=== PATIENT | female | born 1990 | race Two or more races ===

== ENCOUNTER 2016-11-12 14:53 | Emergency (ER) | payer SELFPAY ==
[~2016-11-12] VITALS: Ht 160 cm; Wt 74.8 kg
--- NOTE | 2016-11-12 15:19 | Emergency Room Report ---
History of Present Illness General Chief Complaint: Female Urogenital Problems Source: Patient Present Illness HPI 25-year-old female presents to emergency department complaining of itchy rash on the anterior chest and feet bilaterally x1 month. Patient also reports vaginal bleeding x3 days when she just had her period a week and half ago. Patient denies she does report unprotected intercourse. Patient states that she has not been on control for over 3 months but she is out. Patient also reports that she has always had irregular periods. Patient denies abdominal pain, cramping, dyspareunia vaginal discharge other than bleeding, dysuria, frequency, hematuria. Patient denies nausea, vomiting, fevers, chills. Pt also states that she has had an ingrown hair in the groin area x 1 week, denies swollen lymph nodes, denies hx of STI. reports mild erythema. Denies CP, Palpitations, LOC, AMS, dizziness, Changes in Vision, Sensation, paresthesias, or a sudden severe headache. Allergies: Coded Allergies: No Known Allergies (Unverified , 11/12/16) Patient History Past Medical History: see triage record Past Surgical History: none Pertinent Family History: none Last Menstrual Period: 10/24/16 Now: No Immunizations: UTD Reviewed Nursing Documentation: PMH: Agreed, PSxH: Agreed Nursing Documentation-PMH Past Medical History: No Stated History Review of Systems All Other Systems: negative except mentioned in HPI Physical Exam Vital Signs Date Time Temp Pulse Resp B/P Pulse Ox O2 Delivery O2 Flow Rate FiO2 11/12/16 15:12 98.1 89 16 119/75 99 Room Air Sp02 EP Interpretation: reviewed, normal General Appearance: no apparent distress, alert, GCS 15, non-toxic Head: normocephalic, atraumatic Eyes: bilateral eye PERRL, bilateral eye normal inspection ENT: hearing grossly normal, normal pharynx, no angioedema, normal voice Neck: full range of motion, supple/symm/no masses Respiratory: chest non-tender, lungs clear, normal breath sounds, speaking full sentences Cardiovascular #1: regular rate, rhythm, no edema Gastrointestinal: normal bowel sounds, non tender, soft, no guarding, no rebound Rectal: deferred Genitourinary: normal inspection, no CVA tenderness, cervix normal, os closed, other - no CMT, there is dark red blood in the vaginal vault, no evidence of vaginal wall laceration. there is a small pustule noted on the inner left thigh with mild surrounding erythema, no increased temperature to palpation, no palpable inguinal LAD. Musculoskeletal: back normal, gait/station normal, normal range of motion, non- tender, no calf tenderness Neurologic: alert, oriented x3, responsive, motor strength/tone normal, sensory intact, speech normal Psychiatric: judgement/insight normal, memory normal, mood/affect normal, no suicidal/homicidal ideation Skin: normal color, no rash, warm/dry, well hydrated, rash - macerated rash under each breast bilaterally, in addition to the medial aspects of the feet and webbed spaces bilaterally. no increased temperature to palpation, no crusting noted. Lymphatic: no adenopathy Medical Decision Making PA Attestation Dr. goode is my supervising Physician whom patient management has been discussed with. Diagnostic Impression: Primary Impression: Irregular menstrual cycle Additional Impressions: Folliculitis Rash ER Course Pt. presents to the ED c/o a regular menses, vaginal bleeding x2 days, being out of control medication x 4 months, and rash. Ddx considered but are not limited to [ ] Vital signs: are WNL, pt. is afebrile H&PE are most consistent with [ ] ORDERS: none required at this time, the diagnosis is clinical ED INTERVENTIONS: None required at this time. DISCHARGE: At this time pt. is stable for d/c to home. Will provide printed patient care instructions, and any necessary prescriptions. Care plan and follow up instructions have been discussed with the patient prior to discharge. Last Vital Signs Date Time Temp Pulse Resp B/P Pulse Ox O2 Delivery O2 Flow Rate FiO2 11/12/16 15:12 98.1 89 16 119/75 99 Room Air Disposition: HOME, SELF-CARE Condition: Stable Scripts Clotrimazole* (LOTRIMIN*) 15 Gm Cream..g. 1 APPLIC TOPIC TWICE A DAY, #15 GM Prov: Elisabeth Kerr 11/12/16 Noreth A-Et Estra/Fe Fumarate (MICROGESTIN FE 1-20 TABLET) 1 Each Tablet 1 EACH PO DAILY, #1 PACK 3 Refills Prov: Elisabeth Kerr 11/12/16 Doxycycline Hyclate* (VIBRAMYCIN*) 100 Mg Capsule 100 MG ORAL EVERY 12 HOURS for 7 Days, #14 CAP 0 Refills Prov: Elisabeth Kerr 11/12/16 Patient Instructions: Folliculitis, Menstruation, Rash Additional Instructions: Take medications as directed. Follow up with OBGYN in 3-5 days Return sooner to ED if new symptoms occur, or current symptoms become worse. Elisabeth Kerr Nov 12, 2016 15:19
[2016-11-12 15:20] VITALS: BP 122/62
[2016-11-12 15:47] LABS: APPEARANCE,URINE SLIGHTLY CLOUDY; KETONES,URINE 1+ (NEGATIVE); LEUKOCYTE ESTERASE ,URINE 1+ (NEGATIVE); NITRITE,URINE NEGATIVE (NEGATIVE); PH,URINE 5 (4.5-8.0); PROTEIN,URINE 2+ (NEGATIVE); UROBILINOGEN,URINE NORMAL MG/DL (0.0-1.0)
[2016-11-12 15:58] LABS: ICTOTEST NEGATIVE
[2016-11-12] MEDS ORDERED: VIBRAMYCIN100 MG ORAL (16:19)
[2016-11-12] MEDS ORDERED: CLOTRIMAZOLE15 GM TOPIC (16:19)
[2016-11-12] MEDS ORDERED: MICROGESTIN FE1 EAC1 PO (16:19)
[2016-11-12 16:21] LABS: RBC,URINE TNTC /HPF (0 - 2)
[2016-11-12 16:22] LABS: BACTERIA,URINE MANY /HPF; SQUAMOUS EPITHELIAL CELL,UR FEW /LPF (NONE/OCC)
[2016-11-12 16:27] VITALS: BP 118/60
== END 2016-11-12 16:27 | disposition home or self-care (01) ==
LOC: EMR 16:15
DX: N92.5 Other specified irregular menstruation (principal); R21 Rash and other nonspecific skin eruption; L73.9 Follicular disorder, unspecified
CPT/HCPCS: 81003; 81025; 87086; 99282

== ENCOUNTER 2016-12-14 10:27 | Emergency (ER) | payer SELFPAY ==
[~2016-12-14] VITALS: Ht 160 cm; Wt 77.1 kg
[~2016-12-14 10:27] MED LIST: CLOTRIMAZOLE15 GM TOPIC; MICROGESTIN FE1 EAC1 PO; VIBRAMYCIN100 MG ORAL
[2016-12-14 10:40] VITALS: BP 129/81
[2016-12-14] MEDS ORDERED: KEFLEX500 MG ORAL (10:47)
--- NOTE | 2016-12-14 10:51 | Emergency Room Report ---
History of Present Illness General Chief Complaint: Laceration Source: Patient Present Illness HPI 26 YO F with laceration to dorsal/ulnar aspect of left middle finger >12+ hours ago after accidentally slicing it on metal mailbox. Patient deep cleaned with water, peroxide last night. Denies FB retained. Unknown last tetanus. Bleeding controlled. Didnt come earlier because "it didnt look that bad last night." Denies fever/chills, reduced ROM to any joints of left third finger. Allergies: Coded Allergies: No Known Allergies (Unverified , 11/12/16) Patient History Past Medical History: none Past Surgical History: none Pertinent Family History: none Social History: Denies: alcohol use, drug use, smoking Last Menstrual Period: 11/29/16 Now: No Immunizations: UTD Reviewed Nursing Documentation: PMH: Agreed, PSxH: Agreed Nursing Documentation-PMH Past Medical History: No Stated History Review of Systems All Other Systems: negative except mentioned in HPI Physical Exam Vital Signs Date Time Temp Pulse Resp B/P Pulse Ox O2 Delivery O2 Flow Rate FiO2 12/14/16 10:35 98.1 69 12 129/81 100 Room Air Sp02 EP Interpretation: reviewed, normal General Appearance: normal inspection, well appearing, no apparent distress, alert Head: atraumatic ENT: normal ENT inspection, hearing grossly normal, normal voice Neck: normal inspection, full range of motion, supple, no bony tend Respiratory: normal inspection, lungs clear, normal breath sounds, no respiratory distress, no retraction, no wheezing Cardiovascular #1: regular rate, rhythm, no edema Gastrointestinal: normal inspection, normal bowel sounds, non tender, soft, no guarding, no hernia Genitourinary: no CVA tenderness Musculoskeletal: other - left third finger: 2.5 linear lac to area of outter/ dorsal aspect of middle finger. No FB. Explored to base of wound. Neurologic: normal inspection, alert, responsive, speech normal Psychiatric: normal inspection, judgement/insight normal, mood/affect normal Skin: normal inspection, normal color, no rash Medical Decision Making Diagnostic Impression: Primary Impression: Laceration ER Course 26 YO F with lac to left 3rd finger VSS Afebrile Wound already in stages of healing. >12 hours so no primary repair with sutures Dermabond applied Tetanus updated Keflex Po Abx to prevent infection PMD followup DC home Last Vital Signs Date Time Temp Pulse Resp B/P Pulse Ox O2 Delivery O2 Flow Rate FiO2 12/14/16 10:35 98.1 69 12 129/81 100 Room Air Status: improved Disposition: HOME, SELF-CARE Condition: Improved Scripts Cephalexin* (KEFLEX*) 500 Mg Capsule 500 MG ORAL Q6H, #28 CAP 0 Refills Prov: CELESTINO MARQUEZ M.D. 12/14/16 Patient Instructions: Nonsutured Laceration Care Additional Instructions: - Keep area clean/dry for 48 hours then change dressing - Take ALL antibiotics to prevent wound infection - Return to ER for fever/chills, pus drainage from finger CELESTINO MARQUEZ M.D. Dec 14, 2016 10:50
[2016-12-14] MEDS ORDERED: TdaP Vaccine 0.5ml Syr IM ONE (11:00)
[2016-12-14 12:00] VITALS: BP 129/81
== END 2016-12-14 12:01 | disposition home or self-care (01) ==
LOC: EMR 10:52
DX: S61.213A Laceration without foreign body of left middle finger without damage to nail, initial encounter (principal); Z23 Encounter for immunization; W45.8XXA Other foreign body or object entering through skin, initial encounter; Y92.9 Unspecified place or not applicable; Y99.8 Other external cause status
CPT/HCPCS: 90471; 90715; 99283